=== PATIENT | female | born 1975 | race African-American/Black ===

== ENCOUNTER 2019-09-24 06:55 | Emergency (ER) | payer OTHER ==
[2019-09-24] MEDS ORDERED: IPRATROPIUM/ALBUTEROL 0.5-2.5 MG/3 ML AMPUL NEB ONE (07:33)
--- NOTE | 2019-09-24 08:20 | RADIOLOGY REPORT (SQ) ---
EXAM DESCRIPTION: CHEST 2 VIEWS COMPLETED DATE/TIME: 09/24/2019 7:36 am REASON FOR STUDY: congestion COMPARISON: None. EXAM PARAMETERS: NUMBER OF VIEWS: two views TECHNIQUE: Digital Frontal and Lateral radiographic views of the chest acquired. RADIATION DOSE: NA LIMITATIONS: none FINDINGS: LUNGS AND PLEURA: No opacities, masses or pneumothorax. No pleural effusion. MEDIASTINUM AND HILAR STRUCTURES: No masses or contour abnormalities. HEART AND VASCULAR STRUCTURES: Heart normal size. No evidence for failure. BONES: Convex leftward lower thoracic/upper lumbar curvature HARDWARE: None in the chest. OTHER: No other significant finding. IMPRESSION: NO ACUTE RADIOGRAPHIC FINDING IN THE CHEST. TECHNICAL DOCUMENTATION: JOB ID: [id number] [employer]- All Rights Reserved Reading location - IP/workstation name: [email or web address]
[2019-09-24] MEDS ORDERED: METHYLPREDNISOLONE INJ 125 MG/2 ML SDV IM ONE (08:58)
[2019-09-24] MEDS ORDERED: ALBUTEROL SULFATE 0.083% NEB 2.5 MG/3 ML AMPUL NEB ONE (08:58)
[2019-09-24] MEDS ORDERED: IPRATROPIUM BROMIDE 0.02% NEB 0.5 MG/2.5 ML AMPUL NEB ONE (08:59)
--- NOTE | 2019-09-24 09:06 | ER Document Report ---
ED Respiratory Problem - General Chief Complaint: Cough Stated Complaint: DIFFICULTY BREATHING Time Seen by Provider: 09/24/19 08:36 Primary Care Provider: JOY AUGUST NP [NO LOCAL MD] - Follow up in 3-5 days Notes: 43-year-old female presents with productive cough, congestion, and chest tightness that started last night. Patient states that she is coughing up phlegm. Patient also reports sore throat. Patient denies any fevers, ear pain, dyspnea. Patient denies any personal history of cancer, estrogen use recent long distance travel, recent hospitalizations/surgeries. - Related Data Allergies/Adverse Reactions: No Known Allergies Allergy (Verified 09/24/19 08:08) Past Medical History - Social History Smoking Status: Unknown if Ever Smoked Family History: None Patient has suicidal ideation: No Patient has homicidal ideation: No Review of Systems - Review of Systems Notes: Constitutional: Negative for fever. HENT: Positive for congestion and sore throat. Eyes: Negative for visual changes. Cardiovascular: Positive for chest tightness. Respiratory: Positive for cough. Negative for shortness of breath. Gastrointestinal: Negative for abdominal pain, vomiting or diarrhea. Genitourinary: Negative for dysuria. Musculoskeletal: Negative for back pain. Skin: Negative for rash. Neurological: Negative for headaches, weakness or numbness. 10 point ROS negative except as marked above and in HPI. Physical Exam - Vital signs Vitals: Temp Pulse Resp BP Pulse Ox 97.5 F 76 18 110/68 98 09/24/19 07:16 09/24/19 07:16 09/24/19 07:16 09/24/19 07:16 09/24/19 07:16 - Notes Notes: GENERAL: Well-appearing, well-nourished and in no acute distress. HEAD: Atraumatic, normocephalic. EYES: Pupils equal round and reactive to light, extraocular movements intact, sclera anicteric, conjunctiva are normal. ENT: TMs normal, nares patent, oropharynx clear without exudates. Postnasal drainage noted. Rhinorrhea. Uvula midline without edema. No tonsillar hypertrophy or exudates. No trismus or muffled voice. Moist mucous membranes. NECK: Normal range of motion, supple without lymphadenopathy or JVD. LUNGS: Breath sounds decreased to auscultation bilaterally and equal. No wheezes rales or rhonchi. HEART: Regular rate and rhythm without murmurs, rubs or gallops. EXTREMITIES: Normal range of motion, no pitting or edema. No clubbing or cyanosis. NEUROLOGICAL: Cranial nerves II through XII grossly intact. Normal speech, normal gait. PSYCH: Normal mood, normal affect. SKIN: Warm, Dry, normal turgor, no rashes or lesions noted. Course - Re-evaluation Re-evalutation: 09/24/19 43-year-old female presents with productive cough, congestion, chest tightness. History of similar symptoms previously and was diagnosed with bronchitis. Patient nontoxic and well-appearing. Decreased breath sounds bilaterally. Regular rate and rhythm. EKG is normal sinus rhythm at 76. Chest x-ray negative for pneumonia. Patient is afebrile. PE clinically unlikely. Patient is low risk by Well's criteria. Clinically excluded by [facility]C due to age < 50, absence of tachycardia, hypoxia, previous VTE, recent trauma or surgery, hemoptysis, exogenous estrogen, or unilateral leg swelling. Solu-Medrol and breathing treatment ordered. 09/24/19 11:20 Pt is feeling better. Reviewed results of chest x-ray and EKG with pt. Will treat pt with tessalon perles, prednisone, albuterol inhaler, flonase, and Tanika D with close follow up with PCP. Return precautions discussed. All questions/concerns addressed prior to discharge. - Vital Signs Vital signs: Temp Pulse Resp BP Pulse Ox 97.4 F 63 18 112/56 L 98 09/24/19 11:42 09/24/19 11:42 09/24/19 07:16 09/24/19 11:42 09/24/19 11:42 Discharge - Discharge Clinical Impression: Acute bronchitis Qualifiers: Bronchitis organism: unspecified organism Qualified Code(s): J20.9 - Acute bronchitis, unspecified Condition: Stable Disposition: HOME, SELF-CARE Additional Instructions: Take medications as prescribed. Your chest x-ray was normal and did not show any pneumonia. Return to ER for any worsening symptoms including chest pain, shortness of breath, fever, or any other concerning symptoms. Please follow-up with your primary care doctor in 3 to 5 days. Prescriptions: Benzonatate [Tessalon Perles 100 mg Capsule] 100 mg PO Q8HP PRN #40 capsule PRN Reason: Fexofenadine/Pseudoephedrine [Tanika-D 24 Hour Tablet] 1 each PO DAILY #12 tab.er.24h Prednisone [Deltasone 20 mg Tablet] 2 tab PO BID 5 Days #10 tablet Fluticasone Propionate [Flonase Nasal [place] 50 Mcg/[place] 16 gm] 2 sprays NASL Q12 #1 inhaler Albuterol Sulfate [Proair HFA Inhalation Aerosol 8.5 gm MDI] 2 puff IH Q4H PRN #1 mdi PRN Reason: Forms: Return to Work Referrals: JOY AUGUST NP [NO LOCAL MD] - Follow up in 3-5 days
--- NOTE | 2019-09-24 11:10 | EKG REPORT ---
SEVERITY:- BORDERLINE ECG - SINUS RHYTHM PROBABLE LEFT ATRIAL ABNORMALITY : Confirmed by: Devan Loco MD 24-Sep-2019 11:09:59
[2019-09-24 11:46] VITALS: BP 112/56
== END 2019-09-24 11:47 | disposition home or self-care (01) ==
LOC: ER 06:55
DX: J20.9 Acute bronchitis, unspecified (principal); R07.89 Other chest pain; R05 Cough; J02.9 Acute pharyngitis, unspecified; R09.82 Postnasal drip; J34.89 Other specified disorders of nose and nasal sinuses
CPT/HCPCS: 93005; 71046; 93010; J2930; J3490; J7620; 94640; 96372; 99285